=== PATIENT | female | born 1980 | race Caucasian/White ===

== ENCOUNTER 2019-08-22 00:31 | Emergency (ER) | payer OTHER, SELFPAY ==
[2019-08-22] VITALS (7 sets, daily range): BP systolic 87–133; BP diastolic 30–121; PULSE 88–118; RESP 31–38; TEMP 36.1; O2SAT 98–100
--- NOTE | ~2019-08-22 | CT_ITS ---
EXAMINATION: CT cervical spine wo con DATE: 08/22/2019 01:30 INDICATION: Hanging neck injury. TECHNIQUE: Computed tomography (CT) of the cervical spine was performed without intravenous contrast. Automated exposure control and iterative reconstruction technique were employed. The dose-length pro duct was 409.76 mGy-cm. COMPARISON: None FINDINGS: There is kyphosis and 5 degrees dextrocurvature of cervical spine. Vertebral body heights a re normal. There is mildly decreased disc height at C5-C6 and C6-C7. The following disc levels are sp ecifically discussed: C2-C3: There is no uncovertebral joint osteoarthritis. There is mild right facet joint osteoarthritis . There is no neural foraminal stenosis. There is no central canal stenosis. C3-C4: There is no uncovertebral joint osteoarthritis. There is mild right facet joint osteoarthritis . There is no neural foraminal stenosis. There is no central canal stenosis. C4-C5: There is no uncovertebral joint osteoarthritis. There is mild right facet joint osteoarthritis . There is no neural foraminal stenosis. There is no central canal stenosis. C5-C6: There is mild bilateral uncovertebral joint osteoarthritis. There is mild right and moderate l eft facet joint osteoarthritis. There is no neural foraminal stenosis. There is mild central canal st enosis. C6-C7: There is mild left uncovertebral joint osteoarthritis. There is no facet joint osteoarthritis. There is no neural foraminal stenosis. There is no central canal stenosis. C7-T1: There is no uncovertebral joint osteoarthritis. There is mild bilateral facet joint osteoarthr itis. There is no neural foraminal stenosis. There is no central canal stenosis. IMPRESSION: 1. No fracture. 2. Mild cervical spondylosis. Reviewed, dictated and finalized at location A. PRODUCTION MANAGER
--- NOTE | ~2019-08-22 | XR_ITS ---
EXAMINATION: XR chest ET placement DATE: 08/22/2019 00:54 INDICATION: Intubation. TECHNIQUE: A single frontal view of the chest was obtained. COMPARISON: None. FINDINGS: The chest demonstrates clear lungs without pneumonia, pleural effusion, or pneumothorax. Th e heart size is normal. The endotracheal tube tip is 1.9 cm above the haris. There are surgical clip s in the abdomen. There is gaseous distention of the stomach. IMPRESSION: 1. No acute cardiopulmonary disease. Reviewed, dictated and finalized at location A. RATOR MECHANIC
--- NOTE | ~2019-08-22 | CT_ITS ---
EXAMINATION: CT brain wo con DATE: 08/22/2019 01:30 INDICATION: Unresponsive. Hanging. TECHNIQUE: Computed tomography (CT) of the head was performed without intravenous contrast. The mA wa s adjusted according to patient size. Iterative reconstruction technique was employed. The dose-lengt h product was 605.33 mGy-cm. COMPARISON: None FINDINGS: There is no intracranial hemorrhage, acute infarction, or abnormal intracranial mass lesion . The ventricles are normal in size. There is mild mucosal thickening in the paranasal sinuses. The m astoid air cells are normal. The orbits are normal. IMPRESSION: 1. Normal brain. Reviewed, dictated and finalized at location A. IFIED PUBLIC ACCOUNTANT IMPRESSION: 1. Normal brain.
--- NOTE | 2019-08-22 00:35 | ED.CPR ---
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 EMS and police were at bedside and provided the information. Pt was found in her assisted cell completely suspended in the air with her thermal bottom pants tied around her neck. Pt was found hanging from her cell door and was found hanging 0.5 feet off the ground. EMS and police state the pt's neck was stretching. Police cut the pt down. Pt had no pulse before EMS arrived. Police began CPR and attempted to use the AED. Police notes the AED advised no shock needed. Police began CPR again until EMS arrived. Police notes that the pt was last seen within a 30 minute interval at the 10:40 routine check. EMS states when they arrived to the scene the pt was not breathing. Pt had spontaneous respirations and her breathing was agonal. EMS notes the pt's blood pressure was 106/72 at the scene and the pt became tachycardic. EMS states they believe the pt might have aspirated because they had to use a lot of suction. EMS states the pt aspirated loose mucus. EMS denies the pt having spontaneous movements. Police notes the pt has no medical allergies. HPI is limited due to pt's clinical condition. complaint: found unresponsive Place: other (assisted cell) Bystander CPR performed: Yes AED applied by bystander/brush and broom clipper: Yes Shock advised: No Initial findings in the field: unresponsive, no respirations and agonal Associated symptoms: other (unobtainable d/t pt's clinical condition) Treatments prior to arrival: intubation, BMV, chest compressions, spinal immobilization and other (IO) Review of Systems Review of Systems: ROS unobtainable: other (due to pt's clinical condition) Neurologic: Reports other (unresponsiveness) [facility] Past Medical History Medical History (Updated 08/22/19 @ 03:30 by Domi Smith MD) Medical history unknown Surgical History Surgical History (Updated 08/22/19 @ 00:37 by Lanny Panchal) History of renal stent left Hx of cholecystectomy Social History Social History (Updated 08/22/19 @ 03:20 by Domi Smith MD) Smoking status: Unknown if ever smoked Alcohol intake: unknown Substance use: unknown Living arrangements: incarcerated Exam Const: General: ill appearing acutely and patient obtunded Nutritional Appearance: well nourished Limitations: physical limitations HENMT: Mouth: Yes lip normal and Yes moist mucous membranes Eyes: Conjunctivae: conjunctivae normal Pupils: Equal, round and reactive pupils present Resp: Effort & Inspection: other (Intubated) Auscultation: clear to auscultation bilaterally Cardio: Rate: regular rate Rhythm: regular rhythm Peripheral pulses: radial pulses present bilateral 2+ and dorsalis pedis present bilateral 2+ GI: GI Palp: Yes Soft to palpation and No Tenderness to palpation present (GI) Auscultation: normal bowel sounds Back/Spine/Pelvis: Cervical Spine: collar present Skin: General skin exam: dry skin, pallor and other (cool to touch) Neuro: General: patient obtunded Cranial nerves: Yes Equal, round and reactive pupils present Comatose Patient: decerebrate rigidity Extrem: General: no clubbing, cyanosis or edema and other (No signs of extremity trauma) Left upper extremity: shoulder/upper arm other (I/O in proximal humerus) Course Course Emergency Course: Patient presents to emergency department via EMS from local assisted after hanging herself. Patient without any purposeful movement and unresponsive. Patient initially without overt evidence of posturing, but had received etomidate for sedation to facilitate intubation prior to arrival. On reevaluation patient
--- NOTE | 2019-08-22 00:37 | ECG_ITS ---
Measurements Intervals [place] Rate: 82 P: 81 CT: 138 QRS: 113 QRSD: 90 T: 64 QT: 391 QTc: 459 Interpretive Statements SINUS RHYTHM RIGHT AXIS DEVIATION BORDERLINE ST ABNORMALITY- ANTEROLAT/INF LEADS BASELINE WANDER- I, III, AVR, AVL, V1-V2, V4-V6 BORDERLINE ECG Electronically Signed On 08-22-2019 7:08:27 CHEMICAL MACHINE TENDER by Froy Gentile D.O.
[2019-08-22 00:55] LABS: Alveolar/Arterial O2 Gradient 228.5 mmHg; Base Excess ABG -8.6 mEq/l (+/-2.0); Carboxyhemoglobin 0.1 % THb (0-2.0); Fractional Inspired Oxygen 100 %; HCO3 ABG 17.5 mEq/l (22.0-26.0); Methemoglobin ABG 0.5 %THb (0-1.5); Oxygen Content ABG 21.7 %vol (16.0-22.0); Oxygen Saturation ABG 99.8 % (95.0-100.0); Oxyhemoglobin 98.7 % THb (90.0-100.0); PCO2 ABG 38.2 mmHg (35.0-45.0); PO2 ABG 446.3 mmHg (80.0-100.0); PO2 FiO2 Ratio Arterial Blood 4.46 %; Reduced Hemoglobin 0.7 %THb (0-5.0); Total Hemoglobin 14.8 g/dL (12.0-18.0)
[2019-08-22 00:56] LABS: Modified Allen's Test Pass; Site Drawn LEFT RADIAL; pH ABG 7.278 (7.350-7.450)
[2019-08-22 00:57] LABS: Arterial Blood Gas Vent Mode CMV; Arterial Blood Gas Ventilator rate 16 /MIN; Device VENTILATOR
[2019-08-22 00:58] LABS: Arterial Blood Gas PEEP 5 cmH2O; Arterial Blood Gas Tidal Volume 400 ml
[2019-08-22] MEDS: MIDAZOLAM HCL 2 MG/2 ML VIAL IV PUSH (01:56)
[2019-08-22] MEDS: LACTATED RINGERS 1,000 ML 999 ML IV CONT (01:57)
== END 2019-08-22 02:36 | disposition short-term general hospital (02) ==
PROVIDERS: Emergency Provider Emergency Medicine
DX: T71.162A Asphyxiation due to hanging, intentional self-harm, initial encounter (principal); R94.31 Abnormal electrocardiogram [ECG] [EKG]; M47.812 Spondylosis without myelopathy or radiculopathy, cervical region
CPT/HCPCS: 36600; 70450; 72125; 82375; 82805; 83050; 92950; 93005; 96361; 96374; 99285; J2250; J7120